=== PATIENT | male | born 1955 | race Caucasian/White ===

== ENCOUNTER → 2017-08-24 | Outpatient (CLI) | payer OTHER ==
[2017-08-24 12:56] LABS: HEMATOCRIT 46.4 % (42-52); HEMOGLOBIN 15.5 g/dL (14.0-18.0); MEAN CELL VOLUME 90.4 fL (80-100); MEAN CORPUSCULAR HEMOGLOBIN 30.2 pg (25-34); MEAN CORPUSCULAR HGB CONC 33.4 g/dl (32-36); MEAN PLATELET VOLUME 11.3 fL (7.4-10.4); PLATELET COUNT 220 K/uL (130-400); RED CELL DISTRIBUTION WIDTH CV 13.9 % (11.5-14.5); RED CELL DISTRIBUTION WIDTH SD 45.9 fL (36.4-46.3)
[2017-08-24 13:41] LABS: HEMOGLOBIN A1C 5.6 % (4.5-5.6)
[2017-08-24 14:26] LABS: BLOOD UREA NITROGEN 18 mg/dl (7-18); CREATININE 1.33 mg/dl (0.60-1.40); GLUCOSE 94 mg/dl (70-99)
[2017-08-24 14:27] LABS: ALBUMIN 3.6 gm/dl (3.4-5.0); ALT/SGPT 32 U/L (12-78); AST/SGOT 18 U/L (15-37); CALCIUM 9.1 mg/dl (8.5-10.1); CARBON DIOXIDE 25 mmol/L (21-32); CHOLESTEROL 169 mg/dl (0-200); POTASSIUM 4.2 mmol/L (3.5-5.1); SODIUM 138 mmol/L (136-145)
[2017-08-24 14:29] LABS: ALKALINE PHOSPHATASE 93 U/L (45-117); LDL CHOLESTEROL CALCULATED 106 mg/dl; TOTAL PROTEIN 7.2 gm/dl (6.4-8.2)
== END | disposition home or self-care (01) ==
LOC: C.LABPVFM 08:07
PROVIDERS: ATTEND Family Medicine
DX: Z00.00 Encounter for general adult medical examination without abnormal findings (principal); I10 Essential (primary) hypertension

== ENCOUNTER 2023-09-03 14:32 | Inpatient (IN) ==
[2023-09-03 15:02] LABS: Basophils # (auto) 0.07 K/uL (0.00-0.20); Basophils % (auto) 1.2 %; Eosinophils % (auto) 1.7 %; Hematocrit (blood only) 50.2 % (42.0-52.0); Hemoglobin 16.8 g/dl (14.0-18.0); Immature Granulocytes # (auto) 0.04 K/uL (0.01-0.20); Immature Granulocytes % (auto) 0.7 %; Lymphocytes % (auto) 17.3 %; Mean Corpuscular Hemoglobin 29.2 pg (25.0-34.0); Mean Corpuscular Hgb Conc 33.5 g/dL (32.0-36.0); Mean Corpuscular Volume 87.2 fL (80.0-100.0); Mean Platelet Volume 10.4 fL (9.4-12.4); Monocytes # (auto) 0.67 K/uL (0.11-0.59); Monocytes % (auto) 11.6 %; Neutrophils % (auto) 67.5 %; Platelet Count 165 K/uL (130-400); RDW Coefficient of Variation 13.7 % (11.5-14.5); RDW Standard Deviation 43.4 fL (36.4-46.3); Red Blood Count 5.76 M/uL (4.70-6.10); White Blood Count 5.78 K/ul (4.8-10.8)
--- NOTE | 2023-09-03 15:12 | XRay Report ---
SINGLE VIEW CHEST CLINICAL HISTORY: Atypical chest pain FINDINGS: A PA chest radiograph is compared to study dated 09/01/2011. The heart is mildly enlarged. T he pulmonary vasculature is noncongested. There is bibasilar scarring/atelectasis. The lungs and pleu ral spaces are otherwise clear. No pneumothorax is seen. The bony thorax is grossly intact. A nonobst ructing calculus projects over the upper pole of the left kidney. IMPRESSION: 1. No active disease in the chest. 2. Left-sided nephrolithiasis. ACT 112: Negative or not required by law. Electronically signed by: Td Felton M.D. 09/03/2023 3:11 PM
[2023-09-03 15:29] LABS: Albumin Globulin Ratio 1.3 (0.9-2); Albumin Level 4.2 gm/dl (3.4-5.0); BUN Creatinine Ratio 8.7 (10-20); Bilirubin,Total 1.3 mg/dl (0.2-1.0); Calcium 9.5 mg/dl (8.6-10.3); Creatinine Clr Calc Pharmacy 65.4 ml/min; Est GFR (African American) 60.5 ml/min; Est GFR (Non-African American) 52.2 ml/min; Globulin 3.2 gm/dl (2.5-4.0); Potassium 3.8 mmol/L (3.5-5.1); Total Protein 7.4 gm/dl (6.0-8.3)
[2023-09-03 15:31] LABS: INR 1.1 (0.9-1.1); Partial Thromboplastin Ratio 0.9; Partial Thromboplastin Time 25 Seconds (21-31); Prothrombin Time 11.5 Seconds (9.0-12.0)
[2023-09-03 15:36] LABS: Troponin I High Sensitivity 13.9 pg/ml (0-20)
[2023-09-03 15:40] LABS: Influenza A virus by PCR Negative (Neg); Influenza B virus by PCR Negative (Neg); RSV by PCR Negative (Neg); SARS CoV2 RNA(COVID-19) Ceph NEGATIVE (Negative)
[2023-09-03] MEDS: OPTIRAY 320 125ml IV ONE (15:44)
--- NOTE | 2023-09-03 16:05 | CT Scan Report ---
CT ANGIOGRAM OF THE CHEST CLINICAL HISTORY: Cough and dyspnea COMPARISON STUDY: Chest x-ray dated 09/03/2023. TECHNIQUE: Following the IV administration of 119 cc of Optiray 320, CT angiogram of the chest was pe rformed from the upper abdomen to the thoracic inlet utilizing the pulmonary embolus protocol. Images are reviewed in the axial, sagittal, and coronal planes. 3-D MIPS images are created and assessed. I V contrast was administered without complication. A dose lowering technique was utilized adhering to the principles of ALARA. CT DOSE: 946.85 mGy.cm FINDINGS: Thyroid: Imaged portions of the thyroid gland are normal in size and attenuation. Thoracic aorta: The thoracic aorta is normal in caliber and demonstrates standard 3-vessel arch anato my. No dissection is seen. Pulmonary vasculature: The pulmonary trunk is normal in caliber. There is thrombus within the distal right main pulmonary artery. This extends into the right upper, middle, and lower lobe pulmonary steven shanita and segmental and subsegmental branches. There is also thrombus within the distal left main pulm onary artery which extends into the upper and lower lobe pulmonary arteries into segmental and subseg mental branches. Heart: The heart is top normal in size and without pericardial effusion. Lungs and pleural spaces: There are scattered pulmonary cysts. Foci of atelectasis are seen throughou t both lungs. The trachea and central airways are clear. No focal airspace consolidation or pleural e ffusion is seen. Mediastinum: There is no mediastinal lymphadenopathy. Shirley: Clear. Axillae: There is no axillary lymphadenopathy. Upper abdomen: Left-sided nephrolithiasis is noted. There is a small hiatal hernia. Skeletal structures: The skeletal structures are osteopenic. Degenerative change is noted in the shou lders and spine. No lytic or blastic bony lesions are seen. IMPRESSION: 1. Extensive bilateral pulmonary embolus as above. 2. No airspace consolidation or pleural effusion is identified. 3. Left-sided nephrolithiasis. 4. Additional findings as above. ACT 112: Negative or not required by law. Electronically signed by: Td Felton M.D. 09/03/2023 4:04 PM
[2023-09-03] MEDS ORDERED: Heparin IV Adult Wt-Based Standard w/ INITIAL Bolus Protocol IV STA (16:44)
[2023-09-03] MEDS ORDERED: HEPARIN SOD (PORCINE) 1000 UNIT/ML IV ONE (17:01)
[2023-09-03] MEDS ORDERED: NALOXONE HCL 0.4 MG/1 ML VIAL/CARP IV PRN (17:02)
[2023-09-03] MEDS ORDERED: MoRPHine SULFATE 2 MG/ML CARP IV PRN (17:02)
[2023-09-03] MEDS ORDERED: ACETAMINOPHEN 325 MG TAB PO PRN (17:02)
[2023-09-03] MEDS: HEPARIN SODIUM/DEXTROSE 25,000 UNITS/500 ML BAG IV SCH (17:07)
[2023-09-03] MEDS: HEPARIN SOD (PORCINE) 1000 UNIT/ML IV ONE (17:07)
--- NOTE | 2023-09-03 17:27 | History & Physical Report ---
Date of Service September 03, 2023 Assessment & Plan (1) Bilateral pulmonary embolism: Plan: Assessment: 1. Bilateral pulmonary emboli. Relatively extensive, but not saddle emboli and no evidence of right heart strain. Hemodynamically stable. Heparin drip. Echocardiogram in the morning. Bilateral lower extremity Dopplers. Hypercoagulable panel was not ordered as the patient's heparin drip was already initiated prior to admission. Will continue heparin drip overnight depending results of further testing and clinical course patient can be transition to oral anticoagulation therapy prior to discharge. 2. Rule out occult malignancy. The patient has never had a colonoscopy. CTA of the chest is negative for any type of occult malignancy suspicion. We will do a CT of the abdomen pelvis tomorrow with contrast for evaluation. 3. History of hypertension. Stable. Continue same home medications. 4. Obesity Plan: As discussed above. Please refer to orders for further planning. History of Present Illness Chief Complaint: Shortness of breath, hypoxemia. Primary Care Provider: Fouzia Melo MD This is a pleasant 67-year-old male who is very active for his age. 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 He presented to his primary care doctor's office today found to be mildly hypoxemic, 88% on room air, and mildly tachycardic, approximately 108 bpm. Patient was placed on 2 L of oxygen nasal cannula in the office and was directed to the ER for further evaluation and treatment for concern of possible pneumonia versus PE. The patient was recently exposed to 2 people who were diagnosed with bacterial pneumonia. On further history taking the patient has been really more short of breath than his baseline since hunting season of 2022, March 2023. However it has been worse over the last couple days than it has been. The patient denies any chest pain with his symptomatology. In the emergency department the patient had reassuring laboratory studies including a negative troponin. However the patient's CTA of the chest was positive for bilateral pulmonary emboli. There was no comment of any significant right-sided heart strain. Patient's vital signs he was not tachypneic in the ER is only requiring 2 L of oxygen nasal cannula. The patient was commenced on a heparin drip and we were called to admit the patient for further evaluation and treatment. On further family medical history taking the patient has no family history of thromboembolic disease, PEs, DVTs or hypercoagulable state in his parents or siblings. In addition the patient denies any type of recent travel history over the last several months. Denies any other risk factors for DVT/PE. Allergies Allergy/AdvReac Type Severity Reaction Status Date / Time No Known Allergies Allergy Unknown Verified 09/03/23 13:05 Home Medications Medication Instructions Recorded Confirmed Type enalapril maleate 20 mg tablet See Rx Instructions .Route 08/24/23 09/03/23 Rx .COMPLEX #90 tabs Past Med/Surg History Medical History (Updated 09/03/23 @ 17:24 by Fortino Ruiz, PhD, DO) History of kidney stones HTN (hypertension), benign Surgical History (Updated 09/03/23 @ 17:22 by Fortino Ruiz, PhD, DO) History of arthroscopy of both knees H/O hernia repair Family History Uncle Myocardial infarction Denies family history of Ovarian cancer Prostate cancer Breast cancer Colorectal cancer Social History Smoking Status: Never smoker Second Hand Exposure: No; Do You Dip or Chew Tobacco: No; Hx Alcohol Use: Yes Alcohol type: beer Alcohol Intake Frequency: Monthly or Less Hx Substance Use: No Preferred Language: Danish Communication Ability: Effective Visual Impairment: No Limitations Hearing Ability: Normal Computer Forensic Examiner Required: No Beliefs That Will Affect Care: None marital status: Current Living Situation: Alone current occupational status: retired current occupation: Works Part-Time How many Children do You have: 3 Feels Safe at Home: Yes Childhood Exposure to Second-Hand Smoke: No Diet: regular caffeine: Yes during the past year weight has: remained stable Dental Care, Regularly: No Physical Activity Frequency: Daily Seatbelt Use: never Sunscreen Use: No Assistive Devices: None Review of Systems Review of Systems: A 10 point review of system was obtained and unless otherwise stated here or in history of present illness are negative and noncontributory to chief complaint. Physical Exam Physical Exam: In General: In general is a very pleasant 67-year-old male who is alert and oriented x 3 at the time my exam he is in no acute distress. He is conversing in complete sentences while on 2 L of oxygen nasal cannula. He denies pain. He denies shortness of breath at rest. He interacts appropriately and pleasantly HEENT: Normocephalic atraumatic pupils are equal round and reactive to light bilaterally. No scleral icterus no conjunctival injection external auditory canals are patent septum is in the midline nose is without discharge oral mucosa is pink and moist without lesion. NECK: Supple no rigidity no lymphadenopathy no thyromegaly no carotid bruits no JVD no masses. HEART: Mildly tachycardic (low 100s) I do not appreciate murmur or ectopy or rub on exam. LUNGS: Clear to auscultation bilaterally and anteriorly with no evidence of adventitious sounds/wheezes rales or rhonchi. ABDOMEN: Soft nontender, no rebound, no peritoneal signs, positive bowel sounds, no appreciable organomegaly. EXTREMITIES: Intact, no peripheral cyanosis, clubbing or edema. Strength is 5 out of 5 in extremities x4, no pathological reflexes. NEUROLOGICAL: Cranial nerves II through XII are grossly intact with no focal deficit elicited upon examination. No tremor. Results & Data Results & Data Vital Signs (Past 12 Hours) Vital Signs Temp Pulse Pulse Resp BP BP Pulse Ox 09/03/23 16:30 79 24 124/84 93 09/03/23 15:21 82 20 94 09/03/23 15:13 86 09/03/23 14:39 88 L 09/03/23 14:35 36.6 C 104 H 18 172/97 H 88 L O2 Del Method O2 Flow Rate 09/03/23 16:30 Nasal Cannula 2 09/03/23 15:21 Nasal Cannula 2 09/03/23 15:13 09/03/23 14:39 Nasal Cannula 0 09/03/23 14:35 Room Air Code Status & VTE Plan Code Status Full code-I personally discussed with patient today VTE Prophylaxis Plan VTE Prophylaxis will be ordered: Yes PG Care Time/CCT Total # of Minutes Spent Total Time Spent with Patient: Total time spent is greater than 50% in coordination of care (as documented) at patient's floor/unit and/or counseling patient: Coding Level of Care Code 85940 INT INP/OBS CARE 3/75MIN Diagnoses Bilateral pulmonary embolism I26.99
--- NOTE | 2023-09-03 17:58 | Emergency Department Note ---
History of Present Illness General Chief Complaint: Shortness of Breath/Dyspnea Stated Complaint: BLOOD COT, PNEUMONIA Time Seen by Provider: 09/03/23 15:17 History of Present Illness Provider Complaint: shortness of breath Onset (ago): month(s) (1) Consistency/Duration: + progressively worsening Relieved By: + nothing Exacerbated By: + nothing Context: + recent illness Associated symptoms: no chest pain, no pain with inspiration, no fever, no cough, no wheezing, no sputum production, no orthopnea, no lower extremity pain, no polyuria, no polydipsia, no paresthesias, no palpitations, no hemoptysis, no abdominal pain or no chest congestion Home Medications Medication Instructions Recorded Confirmed Type enalapril maleate 20 mg tablet See Rx Instructions .Route 08/24/23 09/03/23 Rx .COMPLEX #90 tabs Allergies Allergy/AdvReac Type Severity Reaction Status Date / Time No Known Allergies Allergy Unknown Verified 09/03/23 13:05 Past Med/Surg History Medical History History of kidney stones HTN (hypertension), benign Surgical History History of arthroscopy of both knees H/O hernia repair Family History Uncle Myocardial infarction Denies family history of Ovarian cancer Prostate cancer Breast cancer Colorectal cancer Social History Smoking Status: Never smoker Second Hand Exposure: No; Do You Dip or Chew Tobacco: No; Hx Alcohol Use: Yes Alcohol type: beer Alcohol Intake Frequency: Monthly or Less Hx Substance Use: No Preferred Language: Yakut Communication Ability: Effective Visual Impairment: No Limitations Hearing Ability: Normal Special Officer Required: No Beliefs That Will Affect Care: None marital status: Current Living Situation: Alone current occupational status: retired current occupation: Works Part-Time How many Children do You have: 3 Feels Safe at Home: Yes Childhood Exposure to Second-Hand Smoke: No Diet: regular caffeine: Yes during the past year weight has: remained stable Dental Care, Regularly: No Physical Activity Frequency: Daily Seatbelt Use: never Sunscreen Use: No Assistive Devices: None Physical Exam 2 Vital Signs: Vital Signs - 24 hr 09/03/23 14:35 09/03/23 14:39 09/03/23 15:13 Temperature 36.6 C Temperature Source Temporal Artery Sc an Pulse Rate 104 H 86 Pulse Rate [Apical ] Pulse Rhythm Pulse Rhythm [Apic al] Pulse Strength [Ap ical] Respiratory Rate 18 Respiratory Effort / Characteristics Non-Labored Sponta neous Respiratory Depth Normal Respiratory Patter n Blood Pressure 172/97 H Blood Pressure [Ri ght Arm] Blood Pressure Fiordaliza n 122 Blood Pressure Fiordaliza n [Right Arm] Blood Pressure Pos ition Sitting Blood Pressure Pos ition [Right Arm] Pulse Oximetry 88 L 88 L Oxygen Delivery Me thod Room Air Nasal Cannula Oxygen Flow Rate 0 Sepsis Recent Feve r Within 48 Hours No Sepsis New/Unexpla ined Change in Men radha Status N/A Sepsis Action Take n by Nursing No Action Required Oxygen Flow Rate - Titration 2 Pulse Oximetry Pos t Tiitration 93 09/03/23 15:21 09/03/23 16:30 Temperature Temperature Source Pulse Rate 82 Pulse Rate [Apical ] 79 Pulse Rhythm Regular Pulse Rhythm [Apic al] Regular Pulse Strength [Ap ical] Normal Respiratory Rate 20 24 Respiratory Effort / Characteristics Non-Labored Sponta neous Respiratory Depth Normal Respiratory Patter n Regular Blood Pressure Blood Pressure [Ri ght Arm] 124/84 Blood Pressure Fiordaliza n Blood Pressure Fiordaliza n [Right Arm] 97 Blood Pressure Pos ition Blood Pressure Pos ition [Right Arm] Lying Pulse Oximetry 94 93 Oxygen Delivery Me thod Nasal Cannula Nasal Cannula Oxygen Flow Rate 2 2 Sepsis Recent Feve r Within 48 Hours Sepsis New/Unexpla ined Change in Men radha Status Sepsis Action Take n by Nursing Oxygen Flow Rate - Titration Pulse Oximetry Pos t Tiitration Physical Exam: Physical Exam GENERAL: oriented to person, place, and time. appears well-developed and well- nourished. HENT: Exam performed. - Head: Normocephalic and atraumatic. EYES: Conjunctivae and EOM are normal. Right eye exhibits no discharge. Left eye exhibits no discharge. No scleral icterus. NECK: Normal range of motion. Neck supple. No JVD present. CV: Normal rate, regular rhythm, normal heart sounds and intact distal pulses. There is no peripheral edema. Palpable radial pulses bue. PULM/CHEST: Effort normal and breath sounds normal. No respiratory distress. No stridor. no wheezes. no rales. ABD: The abdomen is soft. There is no tenderness. NEURO: Motor and sensation grossly intact. SKIN: Skin is warm and dry. He is not diaphoretic. PSYCH: normal mood and affect. Behavior is normal. Judgment and thought content normal. Course Course 151: The patient was evaluated in room 80. A complete history and physical exam was performed Cardiac monitoring: An order was placed for continuous cardiac monitoring. The monitor shows a rate of sinus with 80 rhythm interpreted by me Patient was hypoxic on arrival and placed on supplemental oxygen via nasal cannula which improved the patient's oxygen saturation. 1645: Vital signs stable on supplemental oxygen via nasal cannula. Labs within normal limits. CTA shows multiple PEs with no heart strain. Patient be started on heparin bolus and drip and admitted to the [facility]. Administered Medications Heparin Sodium/Dextrose (Heparin Sodium/Dextrose) 25,000 units in 500 mls @ 33 mls/hr IV .[id number] [facility]; Protocol Stop: 10/03/23 17:14 Last Admin: 09/03/23 17:07 Dose: 1,650 units/hr, 33 mls/hr Documented By: DARIAN Co-signed By: DREW Discontinued Medications Heparin Sodium (Porcine) (Heparin Sod (Porcine) 1000 Unit/Ml) 7,000 units IV NOW ONE Stop: 09/03/23 17:02 Last Admin: 09/03/23 17:07 Dose: 7,000 units Documented By: DARIAN Co-signed By: DREW Ioversol (Optiray 320 125ml) 119 ml IV ONCE ONE Stop: 09/03/23 15:45 Last Admin: 09/03/23 15:44 Dose: 119 ml Documented By: CONNIE Medical Decision Making Laboratory Data Attestation: I reviewed the patient's lab results. 09/03/23 14:45 09/03/23 14:45 Lab Results 09/03/23 Range/Units 14:45 WBC 5.78 (4.8-10.8) K/ul RBC 5.76 (4.70-6.10) M/uL Hgb 16.8 (14.0-18.0) g/dl Hct 50.2 (42.0-52.0) % MCV 87.2 (80.0-100.0) fL MCH 29.2 (25.0-34.0) pg MCHC 33.5 (32.0-36.0) g/dL RDW Std Deviation 43.4 (36.4-46.3) fL RDW Coeff of Marcus 13.7 (11.5-14.5) % Plt Count 165 (130-400) K/uL MPV 10.4 (9.4-12.4) fL Immature Gran % (Auto) 0.7 % Neut % (Auto) 67.5 % Lymph % (Auto) 17.3 % [place] % (Auto) 11.6 % Eos % (Auto) 1.7 % Baso % (Auto) 1.2 % Neut # (Auto) 3.90 (1.40-6.50) K/uL Lymph # (Auto) 1.00 L (1.20-3.40) K/uL [place] # (Auto) 0.67 H (0.11-0.59) K/uL Eos # (Auto) 0.10 (0.00-0.50) K/uL Baso # (Auto) 0.07 (0.00-0.20) K/uL Immature Gran # (Auto) 0.04 (0.01-0.20) K/uL PT 11.5 (9.0-12.0) Seconds INR 1.1 (0.9-1.1) APTT 25 (21-31) Seconds PTT Ratio 0.9 Sodium 138 (136-145) mmol/L Potassium 3.8 (3.5-5.1) mmol/L Chloride 103 (98-107) mmol/L Carbon Dioxide 27 (21-32) mmol/L Anion Gap 8 (3-11) BUN 12 (6-23) mg/dl Creatinine 1.38 (0.6-1.4) mg/dl Est Cr Clr Drug Dosing 65.4 ml/min Est GFR ( Amer) 60.5 ml/min Est GFR (Non-Af Amer) 52.2 ml/min BUN/Creatinine Ratio 8.7 L (10-20) Glucose 104 H (70-99(Fasting)) mg/dl Calcium 9.5 (8.6-10.3) mg/dl Total Bilirubin 1.3 H (0.2-1.0) mg/dl AST 27 (13-39) U/L ALT 25 (7-52) U/L Alkaline Phosphatase 73 (34-104) U/L Troponin I High Sens 13.9 (0-20) pg/ml Total Protein 7.4 (6.0-8.3) gm/dl Albumin 4.2 (3.4-5.0) gm/dl Globulin 3.2 (2.5-4.0) gm/dl Albumin/Globulin Ratio 1.3 (0.9-2) SARS-CoV-2 (PCR) NEGATIVE (Negative) Influenza Type A (PCR) Negative (Neg) Influenza Type B (PCR) Negative (Neg) RSV (RT-PCR) Negative (Neg) Imaging Data Attestation: I personally reviewed and interpreted this imaging study as follows: My Impression: Chest x-ray negative. Airway clear. No pneumothorax. No consolidation. No cardiomegaly or cephalization.. No free air under the diaphragm. No fractures of the skeletal structures. Radiologist's Impression: Chest X-Ray 09/03/23 14:40 SINGLE VIEW CHEST CLINICAL HISTORY: Atypical chest pain FINDINGS: A PA chest radiograph is compared to study dated 09/01/2011. The heart is mildly enlarged. The pulmonary vasculature is noncongested. There is bibasilar scarring/atelectasis. The lungs and pleural spaces are otherwise clear. No pneumothorax is seen. The bony thorax is grossly intact. A nonobstructing calculus projects over the upper pole of the left kidney. IMPRESSION: 1. No active disease in the chest. 2. Left-sided nephrolithiasis. ACT 112: Negative or not required by law. Electronically signed by: Td Felton M.D. 09/03/2023 3:11 PM Chest CTA 09/03/23 15:35 CT ANGIOGRAM OF THE CHEST CLINICAL HISTORY: Cough and dyspnea COMPARISON STUDY: Chest x-ray dated 09/03/2023. TECHNIQUE: Following the IV administration of 119 cc of Optiray 320, CT angiogram of the chest was performed from the upper abdomen to the thoracic inlet utilizing the pulmonary embolus protocol. Images are reviewed in the axial, sagittal, and coronal planes. 3-D MIPS images are created and assessed. IV contrast was administered without complication. A dose lowering technique was utilized adhering to the principles of ALARA. CT DOSE: 946.85 mGy.cm FINDINGS: Thyroid: Imaged portions of the thyroid gland are normal in size and attenuation. Thoracic aorta: The thoracic aorta is normal in caliber and demonstrates standard 3-vessel arch anatomy. No dissection is seen. Pulmonary vasculature: The pulmonary trunk is normal in caliber. There is thrombus within the distal right main pulmonary artery. This extends into the right upper, middle, and lower lobe pulmonary arteries and segmental and subsegmental branches. There is also thrombus within the distal left main pulmonary artery which extends into the upper and lower lobe pulmonary arteries into segmental and subsegmental branches. Heart: The heart is top normal in size and without pericardial effusion. Lungs and pleural spaces: There are scattered pulmonary cysts. Foci of atelectasis are seen throughout both lungs. The trachea and central airways are clear. No focal airspace consolidation or pleural effusion is seen. Mediastinum: There is no mediastinal lymphadenopathy. Shirley: Clear. Axillae: There is no axillary lymphadenopathy. Upper abdomen: Left-sided nephrolithiasis is noted. There is a small hiatal hernia. Skeletal structures: The skeletal structures are osteopenic. Degenerative change is noted in the shoulders and spine. No lytic or blastic bony lesions are seen. IMPRESSION: 1. Extensive bilateral pulmonary embolus as above. 2. No airspace consolidation or pleural effusion is identified. 3. Left-sided nephrolithiasis. 4. Additional findings as above. ACT 112: Negative or not required by law. Electronically signed by: Td Felton M.D. 09/03/2023 4:04 PM ECG Data Attestation: I personally reviewed and interpreted this ECG as follows: Interpretation: Sinus rhythm with a rate of 95. GA QRS and QTc intervals are within normal limits. No ST elevation or ST depression. [facility] Narrative 1517: The patient was evaluated in room 80. A complete history and physical exam was performed Cardiac monitoring: An order was placed for continuous cardiac monitoring. The monitor shows a rate of sinus with 80 rhythm interpreted by me Patient was hypoxic on arrival and placed on supplemental oxygen via nasal cannula which improved the patient's oxygen saturation. 1645: Vital signs stable on supplemental oxygen via nasal cannula. Labs within normal limits. CTA shows multiple PEs with no heart strain. Patient be started on heparin bolus and drip and admitted to the [facility]. Impression & Plan Pulmonary embolism Critical Care Time Critical Care Time: Yes Total Critical Care Time: 57 I have personally spent greater than 57 minutes of critical care time in the direct management of this patient. This includes bedside care, interpretation of diagnostic studies, and testing, discussion with consultants, patient, and family members, and other required patient management activities. This 57 minutes is in excess of all separately billable procedures. Discharge Plan Visit Data Chief Complaint: Shortness of Breath/Dyspnea Stated Complaint: BLOOD COT, PNEUMONIA ED Provider: Ben Nunez Discharge Problem: Pulmonary embolism Patient Disposition: Admitted As Inpatient Forms Stand Alone Forms: [facility] Prescriptions Prescriptions: No Action enalapril maleate 20 mg tablet See Rx Instructions .ROUTE .COMPLEX Qty: 90 1RF Dose Instruction: TAKE 1 TABLET DAILY Rx Instructions: TAKE 1 TABLET DAILY Referrals Referrals: Fouzia Melo MD [Primary Care Provider] - Discharge Problem: Pulmonary embolism Qualifiers: Pulmonary embolism type: multiple subsegmental (without acute cor pulmonale) Q ualified Code(s): I26.94 - Multiple subsegmental pulmonary emboli without acute cor pulmonale
--- NOTE | 2023-09-03 22:31 | Ultrasound Report ---
Exam(s): US VENOUS BILATERAL LOWER EXTREMITIES EXAM: US Duplex Bilateral Lower Extremities Veins CLINICAL HISTORY: Reason for exam: new PE, please monitor for DVT's. TECHNIQUE: Real-time duplex ultrasound scan of the bilateral lower extremity veins integrating B-mode two-dimensional vascular structure, Doppler spectral analysis, color flow Doppler imaging and compression. COMPARISON: None. FINDINGS: Right deep veins: Partial compressibility within the right proximal, middle and distal femoral vein, popliteal vein, posterior tibial and peroneal vein with partial color-flow and internal echoes consistent with partially lucent deep venous thrombosis. Right superficial veins: Unremarkable. No thrombus in the visualized right great saphenous vein. Left deep veins: Partial compressibility of the left common femoral vein, proximal, mid, distal, vein, popliteal vein, posterior tibial and peroneal veins consistent with deep venous thrombosis. There is no flow identified within the left proximal through distal, vein and within the distal popliteal vein suggestive of occlusive deep venous thrombosis. Left superficial veins: Unremarkable. No thrombus in the visualized left great saphenous vein. Soft tissues: No acute findings. No popliteal cyst. IMPRESSION: Bilateral deep venous thrombosis noted as described above, more severe on the left compared to the right with occlusive thrombus within the left femoral vein and distal left popliteal vein. Communications: Call Doctor Other Electronically signed by: Ximena Fonseca MD 09/03/23 22:30 PM
[2023-09-04 00:01] LABS: ANTI-Xa, UFH(UnfractionatedHep 0.68 IU/ml (0.3-0.7)
[2023-09-04 06:38] LABS: Basophils # (auto) 0.06 K/uL (0.00-0.20); Basophils % (auto) 1.2 %; Eosinophils % (auto) 3.9 %; Hematocrit (blood only) 46.3 % (42.0-52.0); Hemoglobin 15.6 g/dl (14.0-18.0); Immature Granulocytes # (auto) 0.05 K/uL (0.01-0.20); Lymphocytes % (auto) 23.5 %; Mean Corpuscular Hemoglobin 29.5 pg (25.0-34.0); Mean Corpuscular Hgb Conc 33.7 g/dL (32.0-36.0); Mean Corpuscular Volume 87.5 fL (80.0-100.0); Mean Platelet Volume 10.5 fL (9.4-12.4); Monocytes # (auto) 0.64 K/uL (0.11-0.59); Monocytes % (auto) 12.5 %; Neutrophils # (auto) 2.95 K/uL (1.40-6.50); Neutrophils % (auto) 57.9 %; Platelet Count 157 K/uL (130-400); RDW Coefficient of Variation 13.6 % (11.5-14.5); RDW Standard Deviation 43.7 fL (36.4-46.3); Red Blood Count 5.29 M/uL (4.70-6.10)
[2023-09-04 07:01] LABS: INR 1.1 (0.9-1.1); Prothrombin Time 11.7 Seconds (9.0-12.0)
[2023-09-04 07:12] LABS: ANTI-Xa, UFH(UnfractionatedHep 0.61 IU/ml (0.3-0.7)
[2023-09-04 07:14] LABS: BUN Creatinine Ratio 10.3 (10-20); Calcium 8.6 mg/dl (8.6-10.3); Creatinine Clr Calc Pharmacy 71.4 ml/min; Est GFR (African American) 67.5 ml/min; Est GFR (Non-African American) 58.2 ml/min; Potassium 4.1 mmol/L (3.5-5.1)
[2023-09-04] MEDS: OPTIRAY 320 100ml IV ONE (08:55)
[2023-09-04] MEDS: ENALAPRIL MALEATE 10 MG TAB PO SCH (09:11)
--- NOTE | 2023-09-04 09:23 | CT Scan Report ---
CT SCAN OF THE ABDOMEN AND PELVIS WITH IV CONTRAST CLINICAL HISTORY: Pulmonary embolus. Neoplastic survey. COMPARISON STUDY: Abdominal CT dated 09/15/2015. TECHNIQUE: Following the IV administration of 94 cc of Optiray 320, CT scan of the abdomen and pelvi s is performed from the lung bases to the proximal femora. Images are reviewed in the axial, sagittal , and coronal planes. IV contrast was administered without complication. A dose lowering technique wa s utilized adhering to the principles of ALARA. CT DOSE: 1446.87 mGy.cm FINDINGS: Lung bases: The heart is enlarged and without pericardial effusion. Pulmonary emboli are seen within branches of the left lower lobe pulmonary artery. There is bibasilar scarring/atelectasis. No airspac e consolidation or pleural effusion is identified. There is a small hiatal hernia. Liver: The contrast-enhanced liver is normal in size, contour, and attenuation. There is no intrahepa tic biliary ductal dilatation. The hepatic veins and portal veins are patent. Gallbladder: Unremarkable. Spleen: Normal in size and attenuation. Pancreas: Unremarkable. Adrenal glands: An 11 mm right adrenal adenoma is unchanged. The left adrenal gland is normal in appe arance. Kidneys: The contrast enhanced kidneys are normal in size and without hydronephrosis. Bilateral nonob structing renal calculi measuring up to 16 mm. A 12 mm exophytic cyst is noted on the left. The kidne ys enhance symmetrically. Abdominal vasculature: The abdominal aorta is normal in course and caliber noting mild atheroscleroti c calcification. Bowel: There is advanced colonic diverticulosis without CT evidence of acute diverticulitis. No bowel obstruction is seen. The appendix is well-visualized and normal Peritoneum: There is no intraperitoneal free air or abdominal ascites. There is a fat-containing umbi lical hernia. Lymphadenopathy: None. Pelvic viscera: The prostate gland is enlarged and heterogeneous. The bladder wall is thickened/trabe culated indicating chronic outlet obstruction. The bladder contains excreted IV contrast. There are b ilateral fat-containing inguinal hernias with evidence of previous right inguinal herniorrhaphy. Skeletal structures: There are bilateral pars defects at L4 with severe disc space narrowing and 13 m m anterolisthesis at L4-L5. Moderate lumbosacral spondylosis is noted. Degenerative change is also se en in the sacroiliac joints with partial fusion. Arthritic change is noted in the hips. No lytic or b lastic lesions are seen. IMPRESSION: 1. No acute infectious or inflammatory findings are identified in the abdomen or pelvis. 2. Bilateral nephrolithiasis. 3. Prostatomegaly with evidence of chronic bladder outlet obstruction. 4. Advanced colonic diverticulosis without CT evidence of acute diverticulitis. 5. Pulmonary embolus is seen with a segmental branch of the left lower lobe pulmonary artery. 6. Cardiomegaly. 7. Additional findings as above. ACT 112: Negative or not required by law. Electronically signed by: Td Felton M.D. 09/04/2023 9:21 AM
--- NOTE | 2023-09-04 13:10 | Hospitalist Progress Note ---
Date of Service September 04, 2023 Assessment & Plan (1) Bilateral pulmonary embolism: Plan: Assessment: 1. Bilateral pulmonary emboli with bilateral DVT. Relatively extensive, but not saddle emboli and no evidence of right heart strain. Hemodynamically stable. On heparin drip. Echocardiogram ordered, pending. Bilateral lower extremity Dopplers showed bilateral lower extremity DVT. Hypercoagulable panel was not ordered as the patient's heparin drip was already initiated. Will continue heparin drip for now and switch to Eliquis tonight at 9 PM. Check H&H in a.m. while on anticoagulation. Will check rest and exercise prior to discharge. 2. Rule out occult malignancy. The patient has never had a colonoscopy. CTA of the chest is negative for any type of occult malignancy suspicion. CT abdomen and pelvis did not show any malignancy. 3. History of hypertension. Stable. Continue same home medications. 4. Obesity Full code DVT prophylaxis: Heparin drip will be transitioned to Eliquis Admission and Anticipated Discharge Date Admission Date: September 03, 2023 Subjective Patient feels well. Denies chest pain or shortness of breath. He tells me that his son was diagnosed with lupus. Review of Systems Review of Systems: All systems reviewed & are unremarkable except as noted in Subjective Physical Exam Physical Exam: General: Awake, conversant Heart: S1, S2/regular rate and rhythm, no murmur rubs or gallops Lungs: Clear to auscultation bilaterally. Normal effort Abdomen: Soft/nontender/nondistended. No hepatosplenomegaly Extremities: No clubbing/cyanosis. No edema Behavior: Appropriate, cooperative Results & Data Results & Data Vital Signs (Past 12 Hours) Vital Signs Temp Pulse Pulse Resp BP Pulse Ox O2 Del Method 09/04/23 11:15 36.6 C 71 18 133/84 90 Nasal Cannula 09/04/23 08:00 77 09/04/23 05:04 36.9 C 78 22 140/83 93 Nasal Cannula 09/04/23 03:05 76 O2 Flow Rate 09/04/23 11:15 3 09/04/23 08:00 09/04/23 05:04 3.0 09/04/23 03:05 Laboratory Results Abnormal lab results 09/03/23 09/04/23 Range/Units 14:45 06:11 Lymph # (Auto) 1.00 L (1.20-3.40) K/uL [place] # (Auto) 0.67 H 0.64 H (0.11-0.59) K/uL BUN/Creatinine Ratio 8.7 L (10-20) Glucose 104 H 103 H (70-99(Fasting)) mg/dl Total Bilirubin 1.3 H (0.2-1.0) mg/dl Diagnostic Findings Chest X-Ray 09/03/23 14:40 SINGLE VIEW CHEST CLINICAL HISTORY: Atypical chest pain FINDINGS: A PA chest radiograph is compared to study dated 09/01/2011. The heart is mildly enlarged. The pulmonary vasculature is noncongested. There is bibasilar scarring/atelectasis. The lungs and pleural spaces are otherwise clear. No pneumothorax is seen. The bony thorax is grossly intact. A nonobstructing calculus projects over the upper pole of the left kidney. IMPRESSION: 1. No active disease in the chest. 2. Left-sided nephrolithiasis. ACT 112: Negative or not required by law. Electronically signed by: Td Felton M.D. 09/03/2023 3:11 PM Chest CTA 09/03/23 15:35 CT ANGIOGRAM OF THE CHEST CLINICAL HISTORY: Cough and dyspnea COMPARISON STUDY: Chest x-ray dated 09/03/2023. TECHNIQUE: Following the IV administration of 119 cc of Optiray 320, CT angiogr am of the chest was performed from the upper abdomen to the thoracic inlet utilizing the pulmonary embolus protocol. Images are reviewed in the axial, sagittal, and coronal planes. 3-D MIPS images are created and assessed. IV contrast was administered without complication. A dose lowering technique was utilized adhering to the principles of ALARA. CT DOSE: 946.85 mGy.cm FINDINGS: Thyroid: Imaged portions of the thyroid gland are normal in size and attenuation. Thoracic aorta: The thoracic aorta is normal in caliber and demonstrates standard 3-vessel arch anatomy. No dissection is seen. Pulmonary vasculature: The pulmonary trunk is normal in caliber. There is thrombus within the distal right main pulmonary artery. This extends into the right upper, middle, and lower lobe pulmonary arteries and segmental and subsegmental branches. There is also thrombus within the distal left main pulmonary artery which extends into the upper and lower lobe pulmonary arteries into segmental and subsegmental branches. Heart: The heart is top normal in size and without pericardial effusion. Lungs and pleural spaces: There are scattered pulmonary cysts. Foci of atelectasis are seen throughout both lungs. The trachea and central airways are clear. No focal airspace consolidation or pleural effusion is seen. Mediastinum: There is no mediastinal lymphadenopathy. Shirley: Clear. Axillae: There is no axillary lymphadenopathy. Upper abdomen: Left-sided nephrolithiasis is noted. There is a small hiatal hernia. Skeletal structures: The skeletal structures are osteopenic. Degenerative change is noted in the shoulders and spine. No lytic or blastic bony lesions are seen. IMPRESSION: 1. Extensive bilateral pulmonary embolus as above. 2. No airspace consolidation or pleural effusion is identified. 3. Left-sided nephrolithiasis. 4. Additional findings as above. ACT 112: Negative or not required by law. Electronically signed by: Td Felton M.D. 09/03/2023 4:04 PM Venous Doppler Study 09/03/23 17:02 CR Exam(s): US VENOUS BILATERAL LOWER EXTREMITIES EXAM: US Duplex Bilateral Lower Extremities Veins CLINICAL HISTORY: Reason for exam: new PE, please monitor for DVT's. TECHNIQUE: Real-time duplex ultrasound scan of the bilateral lower extremity veins integrating B-mode two-dimensional vascular structure, Doppler spectral analysis, color flow Doppler imaging and compression. COMPARISON: None. FINDINGS: Right deep veins: Partial compressibility within the right proximal, middle and distal femoral vein, popliteal vein, posterior tibial and peroneal vein with partial color-flow and internal echoes consistent with partially lucent deep venous thrombosis. Right superficial veins: Unremarkable. No thrombus in the visualized right great saphenous vein. Left deep veins: Partial compressibility of the left common femoral vein, proximal, mid, distal, vein, popliteal vein, posterior tibial and peroneal veins consistent with deep venous thrombosis. There is no flow identified within the left proximal through distal, vein and within the distal popliteal vein suggestive of occlusive deep venous thrombosis. Left superficial veins: Unremarkable. No thrombus in the visualized left great saphenous vein. Soft tissues: No acute findings. No popliteal cyst. IMPRESSION: Bilateral deep venous thrombosis noted as described above, more severe on the left compared to the right with occlusive thrombus within the left femoral vein and distal left popliteal vein. Communications: Call Doctor Other Electronically signed by: Ximena Fonseca MD 09/03/23 22:30 PM Abdomen/Pelvis CT 09/04/23 09:00 CT SCAN OF THE ABDOMEN AND PELVIS WITH IV CONTRAST CLINICAL HISTORY: Pulmonary embolus. Neoplastic survey. COMPARISON STUDY: Abdominal CT dated 09/15/2015. TECHNIQUE: Following the IV administration of 94 cc of Optiray 320, CT scan of the abdomen and pelvis is performed from the lung bases to the proximal femora. Images are reviewed in the axial, sagittal, and coronal planes. IV contrast was administered without complication. A dose lowering technique was utilized adhering to the principles of ALARA. CT DOSE: 1446.87 mGy.cm FINDINGS: Lung bases: The heart is enlarged and without pericardial effusion. Pulmonary emboli are seen within branches of the left lower lobe pulmonary artery. There is bibasilar scarring/atelectasis. No airspace consolidation or pleural effusion is identified. There is a small hiatal hernia. Liver: The contrast-enhanced liver is normal in size, contour, and attenuation. There is no intrahepatic biliary ductal dilatation. The hepatic veins and portal veins are patent. Gallbladder: Unremarkable. Spleen: Normal in size and attenuation. Pancreas: Unremarkable. Adrenal glands: An 11 mm right adrenal adenoma is unchanged. The left adrenal gland is normal in appearance. Kidneys: The contrast enhanced kidneys are normal in size and without hydronephrosis. Bilateral nonobstructing renal calculi measuring up to 16 mm. A 12 mm exophytic cyst is noted on the left. The kidneys enhance symmetrically. Abdominal vasculature: The abdominal aorta is normal in course and caliber noting mild atherosclerotic calcification. Bowel: There is advanced colonic diverticulosis without CT evidence of acute diverticulitis. No bowel obstruction is seen. The appendix is well-visualized and normal Peritoneum: There is no intraperitoneal free air or abdominal ascites. There is a fat-containing umbilical hernia. Lymphadenopathy: None. Pelvic viscera: The prostate gland is enlarged and heterogeneous. The bladder wall is thickened/trabeculated indicating chronic outlet obstruction. The bladder contains excreted IV contrast. There are bilateral fat-containing inguinal hernias with evidence of previous right inguinal herniorrhaphy. Skeletal structures: There are bilateral pars defects at L4 with severe disc space narrowing and 13 mm anterolisthesis at L4-L5. Moderate lumbosacral spondylosis is noted. Degenerative change is also seen in the sacroiliac joints with partial fusion. Arthritic change is noted in the hips. No lytic or blastic lesions are seen. IMPRESSION: 1. No acute infectious or inflammatory findings are identified in the abdomen or pelvis. 2. Bilateral nephrolithiasis. 3. Prostatomegaly with evidence of chronic bladder outlet obstruction. 4. Advanced colonic diverticulosis without CT evidence of acute diverticulitis. 5. Pulmonary embolus is seen with a segmental branch of the left lower lobe pulmonary artery. 6. Cardiomegaly. 7. Additional findings as above. ACT 112: Negative or not required by law. Electronically signed by: Td Felton M.D. 09/04/2023 9:21 AM PG Care Time/CCT Total # of Minutes Spent Total Time Spent with Patient: Total time spent is greater than 50% in coordination of care (as documented) at patient's floor/unit and/or counseling patient: Coding Level of Care Code 36631 SUB INP/OBS CARE 2/35MIN Diagnoses Bilateral pulmonary embolism I26.99
--- NOTE | 2023-09-04 14:50 | Electrocardiogram Report ---
Test Reason : Blood Pressure : / mmHG Vent. Rate : 095 BPM Atrial Rate : 095 BPM P-R Int : 168 ms QRS Dur : 086 ms QT Int : 356 ms P-R-T Axes : 052 -20 022 degrees QTc Int : 447 ms Normal sinus rhythm Cannot rule out Anterior infarct , age undetermined Abnormal ECG When compared with ECG of 01-SEP-2011 11:02, Minimal criteria for Anterior infarct are now Present T wave amplitude has decreased in Anterior leads Confirmed by Ranjit Reza ([id number]) on 09/04/2023 2:49:57 PM Referred By: Confirmed By:Ranjit Reza
--- NOTE | 2023-09-04 17:54 | XCELERA ---
[id number] \\[id number]___[id number]
[2023-09-04] MEDS: APIXABAN 5 MG TABLET PO SCH (21:57)
[2023-09-05 07:08] LABS: Basophils # (auto) 0.06 K/uL (0.00-0.20); Eosinophils # (auto) 0.16 K/uL (0.00-0.50); Eosinophils % (auto) 2.8 %; Hematocrit (blood only) 48.5 % (42.0-52.0); Hemoglobin 15.9 g/dl (14.0-18.0); Immature Granulocytes # (auto) 0.07 K/uL (0.01-0.20); Immature Granulocytes % (auto) 1.2 %; Lymphocytes # (auto) 1.47 K/uL (1.20-3.40); Lymphocytes % (auto) 25.3 %; Mean Corpuscular Hgb Conc 32.8 g/dL (32.0-36.0); Mean Corpuscular Volume 88.3 fL (80.0-100.0); Mean Platelet Volume 10.4 fL (9.4-12.4); Monocytes # (auto) 0.81 K/uL (0.11-0.59); Monocytes % (auto) 13.9 %; Neutrophils # (auto) 3.24 K/uL (1.40-6.50); Neutrophils % (auto) 55.8 %; Platelet Count 165 K/uL (130-400); RDW Coefficient of Variation 13.7 % (11.5-14.5); RDW Standard Deviation 44.5 fL (36.4-46.3); Red Blood Count 5.49 M/uL (4.70-6.10); White Blood Count 5.81 K/ul (4.8-10.8)
[2023-09-05 07:25] LABS: BUN Creatinine Ratio 11.9 (10-20); Calcium 8.9 mg/dl (8.6-10.3); Creatinine Clr Calc Pharmacy 60.1 ml/min; Est GFR (African American) 54.2 ml/min; Est GFR (Non-African American) 46.8 ml/min; Potassium 4.5 mmol/L (3.5-5.1)
[2023-09-05 07:31] LABS: Prothrombin Time 11.4 Seconds (9.0-12.0)
[2023-09-05 09:55] LABS: ANTI-Xa, UFH(UnfractionatedHep 0.99 IU/ml (0.3-0.7)
[2023-09-05] MEDS: SODIUM CHLORIDE 0.9% 1,000 ML IV SCH (11:06)
--- NOTE | 2023-09-05 13:48 | Hospitalist Progress Note ---
Date of Service September 05, 2023 Assessment & Plan (1) Bilateral pulmonary embolism: Plan: Assessment: 1. Bilateral pulmonary emboli with bilateral DVT. Relatively extensive, but not saddle emboli and no evidence of right heart strain. Hemodynamically stable. Switched from heparin drip to Eliquis. Echocardiogram reviewed, no significant RV strain noted. Bilateral lower extremity Dopplers showed bilateral lower extremity DVT. Hypercoagulable panel was not ordered as the patient's heparin drip was already initiated. H&H stable on Eliquis Will check rest and exercise prior to discharge. 2. Acute kidney injury. Patient has a bump in his creatinine 1.2-1.5 today. Likely due to poor p.o. intake. Will hydrate the patient gently. Recheck labs in AM. 2. Rule out occult malignancy. The patient has never had a colonoscopy. CTA of the chest is negative for any type of occult malignancy suspicion. CT abdomen and pelvis did not show any malignancy. 3. History of hypertension. Stable. Continue same home medications. 4. Obesity Full code DVT prophylaxis: Eliquis Likely discharge tomorrow. Admission and Anticipated Discharge Date Admission Date: September 03, 2023 Subjective Patient feels well. Denies chest pain or shortness of breath. He says that he has not been drinking enough fluids Review of Systems Review of Systems: All systems reviewed & are unremarkable except as noted in Subjective Physical Exam Physical Exam: General: Awake, conversant Heart: S1, S2/regular rate and rhythm, no murmur rubs or gallops Lungs: Clear to auscultation bilaterally. Normal effort Abdomen: Soft/nontender/nondistended. No hepatosplenomegaly Extremities: No clubbing/cyanosis. No edema Behavior: Appropriate, cooperative Results & Data Results & Data Vital Signs (Past 12 Hours) Vital Signs Temp Pulse Resp BP Pulse Ox O2 Del Method O2 Flow Rate 09/05/23 11:17 36.4 C L 69 20 136/84 92 Nasal Cannula 2 09/05/23 07:31 36.5 C 73 18 118/74 91 Nasal Cannula 2 09/05/23 03:14 36.5 C 76 19 123/76 92 Nasal Cannula Laboratory Results Abnormal lab results 09/05/23 Range/Units 06:37 [place] # (Auto) 0.81 H (0.11-0.59) K/uL Heparin Anti-Xa, Unfract 0.99 H* (0.3-0.7) IU/ml Creatinine 1.51 H (0.6-1.4) mg/dl PG Care Time/CCT Total # of Minutes Spent Total Time Spent with Patient: Total time spent is greater than 50% in coordination of care (as documented) at patient's floor/unit and/or counseling patient: Coding Level of Care Code 86862 SUB INP/OBS CARE 2/35MIN Diagnoses Bilateral pulmonary embolism I26.99
[2023-09-06 06:20] LABS: Basophils # (auto) 0.07 K/uL (0.00-0.20); Basophils % (auto) 1.4 %; Eosinophils # (auto) 0.17 K/uL (0.00-0.50); Eosinophils % (auto) 3.3 %; Hematocrit (blood only) 45.5 % (42.0-52.0); Immature Granulocytes # (auto) 0.06 K/uL (0.01-0.20); Immature Granulocytes % (auto) 1.2 %; Lymphocytes # (auto) 1.09 K/uL (1.20-3.40); Lymphocytes % (auto) 21.2 %; Mean Corpuscular Hemoglobin 29.2 pg (25.0-34.0); Mean Corpuscular Volume 88.5 fL (80.0-100.0); Mean Platelet Volume 10.2 fL (9.4-12.4); Monocytes % (auto) 13.6 %; Neutrophils # (auto) 3.05 K/uL (1.40-6.50); Neutrophils % (auto) 59.3 %; Platelet Count 163 K/uL (130-400); RDW Coefficient of Variation 13.5 % (11.5-14.5); RDW Standard Deviation 44.2 fL (36.4-46.3); Red Blood Count 5.14 M/uL (4.70-6.10); White Blood Count 5.14 K/ul (4.8-10.8)
[2023-09-06 06:26] LABS: INR 1.1 (0.9-1.1); Prothrombin Time 11.8 Seconds (9.0-12.0)
[2023-09-06 07:44] LABS: BUN Creatinine Ratio 13.7 (10-20); Calcium 8.8 mg/dl (8.6-10.3); Creatinine Clr Calc Pharmacy 68.8 ml/min; Est GFR (African American) 64.4 ml/min; Est GFR (Non-African American) 55.5 ml/min; Potassium 4.3 mmol/L (3.5-5.1)
--- NOTE | 2023-09-06 09:47 | Discharge Summary ---
Date of Service September 06, 2023 Admission HPI Per Admitting Provider This is a pleasant 67-year-old male who is very active for his age. 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 He presented to his primary care doctor's office today found to be mildly hypoxemic, 88% on room air, and mildly tachycardic, approximately 108 bpm. Patient was placed on 2 L of oxygen nasal cannula in the office and was directed to the ER for further evaluation and treatment for concern of possible pneumonia versus PE. The patient was recently exposed to 2 people who were diagnosed with bacterial pneumonia. On further history taking the patient has been really more short of breath than his baseline since hunting season of 2022, March 2023. However it has been worse over the last couple days than it has been. The patient denies any chest pain with his symptomatology. In the emergency department the patient had reassuring laboratory studies including a negative troponin. However the patient's CTA of the chest was positive for bilateral pulmonary emboli. There was no comment of any significant right-sided heart strain. Patient's vital signs he was not tachypneic in the ER is only requiring 2 L of oxygen nasal cannula. The patient was commenced on a heparin drip and we were called to admit the patient for further evaluation and treatment. On further family medical history taking the patient has no family history of thromboembolic disease, PEs, DVTs or hypercoagulable state in his parents or siblings. In addition the patient denies any type of recent travel history over the last several months. Denies any other risk factors for DVT/PE. Admission Exam Per Admitting Provider In General: In general is a very pleasant 67-year-old male who is alert and caren ented x 3 at the time my exam he is in no acute distress. He is conversing in complete sentences while on 2 L of oxygen nasal cannula. He denies pain. He denies shortness of breath at rest. He interacts appropriately and pleasantly HEENT: Normocephalic atraumatic pupils are equal round and reactive to light bilaterally. No scleral icterus no conjunctival injection external auditory canals are patent septum is in the midline nose is without discharge oral mucosa is pink and moist without lesion. NECK: Supple no rigidity no lymphadenopathy no thyromegaly no carotid bruits no JVD no masses. HEART: Mildly tachycardic (low 100s) I do not appreciate murmur or ectopy or rub on exam. LUNGS: Clear to auscultation bilaterally and anteriorly with no evidence of adventitious sounds/wheezes rales or rhonchi. ABDOMEN: Soft nontender, no rebound, no peritoneal signs, positive bowel sounds, no appreciable organomegaly. EXTREMITIES: Intact, no peripheral cyanosis, clubbing or edema. Strength is 5 out of 5 in extremities x4, no pathological reflexes. NEUROLOGICAL: Cranial nerves II through XII are grossly intact with no focal deficit elicited upon examination. No tremor. Principal Diagnosis Acute extensive bilateral PE Bilateral DVT Acute kidney injury. Resolved Discharge Exam General: Awake, conversant Heart: S1, S2/regular rate and rhythm, no murmur rubs or gallops Lungs: Clear to auscultation bilaterally. Normal effort Abdomen: Soft/nontender/nondistended. No hepatosplenomegaly Extremities: No clubbing/cyanosis. No edema Behavior: Appropriate, cooperative Discharge Data Allergies Allergy/AdvReac Type Severity Reaction Status Date / Time No Known Allergies Allergy Unknown Verified 09/03/23 13:05 Consultations 09/03/23 16:45 ED Decision to Admit Stat Ordered Studies 09/03/23 15:35 CT angio chest PE protocol Stat 09/03/23 17:02 US venous doppler LE BI Urgent 09/04/23 09:00 CT abd pelvis IV con only Routine Hospital Course (1) Bilateral pulmonary embolism: Assessment: 1. Bilateral pulmonary emboli with bilateral DVT. Relatively extensive, but not saddle emboli and no evidence of right heart strain. Hemodynamically stable. Switched from heparin drip to Eliquis. Echocardiogram reviewed, no significant RV strain noted. Bilateral lower extremity Dopplers showed bilateral lower extremity DVT. Hypercoagulable panel was not ordered as the patient's heparin drip was already initiated. H&H stable on Eliquis Patient is requiring 2 L of oxygen on exertion. Home O2 arranged. Patient will need a cancer workup outpatient. He may need a hypercoagulable workup as well since no provoking factor was identified. 2. Acute kidney injury. Likely due to poor p.o. intake. Resolved with hydration. 2. Rule out occult malignancy. The patient has never had a colonoscopy. CTA of the chest is negative for any type of occult malignancy suspicion. CT abdomen and pelvis did not show any malignancy. 3. History of hypertension. Stable. Continue same home medications. 4. Obesity Full code DVT prophylaxis: Eliquis Discharge to home on Eliquis Total Time Total Time Spent Total Time Spent (In Minutes): 35 Discharge Plan Discharge Items Patient Disposition: Home - Self-Care Reason For Visit: CHEST PAIN, SOB, EXTENSIVE BL PE'S Discharge Diagnosis: Bilateral PE Bilateral DVT Activity: Resume your previous activity Non-emergency contact: Primary Care Provider Call non-emergency contact if: you have any medication questions and your symptoms worsen Follow-up/Referrals: Fouzia Melo MD [Primary Care Provider] - 09/12/23 10:00 am (Hosp f/u scheduled September 11 at 10:00 with NICA Murphy) Diet: Heart Healthy Addtl Attending Provider Instructions: Advised to follow-up with PCP in 1 week Pending Studies at Discharge: No Stand-Alone Forms: My [facility] Nexi Medications and DC Order Prescriptions: New Eliquis 5 mg Tablet 10 mg PO BID Qty: 72 0RF Rx Instructions: advised to take 2 tablets by mouth twice a day until a.m. dose of 5/7, then switch to 1 tablet by mouth twice a day from p.m. dose of 5/7. Continued enalapril maleate 20 mg tablet See Rx Instructions .ROUTE .COMPLEX Qty: 90 1RF Dose Instruction: TAKE 1 TABLET DAILY Rx Instructions: TAKE 1 TABLET DAILY Discharge Orders: Discharge Order (Routine); Ordered 09/06/23 Ordered By: Олег Lopez Admission Data Admit Date/Time: 09/03/23 17:01 Attending Provider: Олег Lopez Admit Provider: Fortino Ruiz Primary Care Provider: Fouzia Melo Other Providers: Fortino Ruiz Other Interventions: Discharge Summary Assessment (RN) Last Done: 09/06/23 12:17 Coding Level of Care Code 17586 INP/OBS DISCH >30 MIN Diagnoses Bilateral pulmonary embolism I26.99
== END 2023-09-06 12:18 | disposition home or self-care (01) | DRG 176 ==
LOC: ED 14:32 → 2E 17:01 → SUATTDRO 17:01 → 2E 17:57